=== PATIENT | female | born 1965 | race Two or more races ===

== ENCOUNTER 2020-12-07 16:04 | Emergency (ER) | payer OTHER ==
[~2020-12-07] VITALS: Ht 162.6 cm; Wt 66.2 kg
[2020-12-07 18:27] VITALS: BP 150/82
[2020-12-07] MEDS ORDERED: KETOROLAC TROMETH 30 MG/ML 1ML VIAL IV ONE (19:15)
[2020-12-07] MEDS ORDERED: ONDANSETRON HCL 4 MG/2 ML VIAL IV ONE (20:15)
[2020-12-07] MEDS ORDERED: MORPHINE SULF INJ 2 MG/ML SYRINGE 1ML IV ONE (20:15)
== END 2020-12-07 21:30 | disposition home or self-care (01) ==
LOC: ER 16:04 → EDBD 16:04 → ER 21:30
DX: S82.302A Unspecified fracture of lower end of left tibia, initial encounter for closed fracture (principal); M25.572 Pain in left ankle and joints of left foot; X50.9XXA Other and unspecified overexertion or strenuous movements or postures, initial encounter; Y93.01 Activity, walking, marching and hiking; Y92.828 Other wilderness area as the place of occurrence of the external cause; Y99.8 Other external cause status
CPT/HCPCS: 29515; 73610; 73630; 96374; 96375; 99284; J1885; J2270; J2405